=== PATIENT | male | born 1955 | race Caucasian/White ===

== ENCOUNTER 2021-07-18 06:11 | Day surgery (SDC) | payer MEDICARE, OTHER ==
--- NOTE | 2021-07-12 14:58 | HP ---
DATE OF SURGERY: 07/18/2021 HISTORY OF PRESENT ILLNESS: The patient is a 65-year-old male who presented with complaints of dark stool. The patient had a colonoscopy two years ago that was normal. The patient has history of colon polyps in the past. The patient denies any other GI signs or symptoms at this time. PAST MEDICAL HISTORY: Pancreatitis, calcification disease of the pancreas with multiple ERCP's and three stents placed, sludge and pancreatic stones. Patient sees a research group at the [facility] for his pancreatic issues. The patient had his last flare up of pancreatitis about three years ago. PAST SURGICAL HISTORY: Left knee surgery. Seven ERCP's. Three pancreatic stents. The patient still has his gallbladder and it is okay. ALLERGIES: CEFAZOLIN. TORADOL. MEDICATIONS: Losartan, Paxil, Crestor. FAMILY HISTORY: None reported. SOCIAL HISTORY: None reported. REVIEW OF SYSTEMS: CONSTITUTIONAL: Denies fever or chills. CHEST: Denies shortness of breath. CVS: Denies chest pain. ABDOMEN: Denies abdominal pain, nausea, vomiting, diarrhea, constipation. Reports dark stool. PHYSICAL EXAMINATION: GENERAL: No acute distress. CHEST: Nonlabored. No shortness of breath. CVS: Regular rate and rhythm. ABDOMEN: Soft, nontender. IMPRESSION: Dark stools. PLAN: EGD and colonoscopy with Dr. Chandana Mars. As dictated by Robyn Xavier NP.
[2021-07-18] MEDS ORDERED: Lactated Ringers 1,000 ML IV SCH (07:30)
[2021-07-18] MEDS ORDERED: DIPRIVAN 200 MG/20 ML IV ONE (08:52)
[2021-07-18] MEDS ORDERED: Xylocaine-Mpf 2% 5 Ml Vial ONE (08:54)
[2021-07-18] MEDS ORDERED: Ephedrine Sulfate 50 MG/ML ONE (09:05)
[2021-07-18 10:25] VITALS: BP 143/79; PULSE 72; O2SAT 97
--- NOTE | 2021-07-18 10:35 | OP ---
SURGERY DATE/TIME: 07/18/2021 0850 PREOPERATIVE DIAGNOSIS: Dark stools. POSTOPERATIVE DIAGNOSES: 1) Grade 2/4 gastroesophageal reflux disease. 2) Severe diverticulosis of the sigmoid. 3) Moderate internal hemorrhoids. PROCEDURES: 1) EGD. 2) Colonoscopy to cecum. SURGEON: Chandana Mars M.D. ANESTHESIA: MAC. COMPLICATIONS: None. CONDITION: Stable. INDICATION: The patient had dark stools. DESCRIPTION OF PROCEDURE: Taken to endoscopy. Left lateral decubitus position. Pharyngoesophageal junction normal. MAC anesthesia present, excellent anesthesia level present. Esophagus normal down to gastroesophageal junction. A rim of esophagitis grade 2/4. No hiatal hernia. Fundus, body and antrum normal. Pylorus normal. Duodenal bulb normal. Second portion normal. The scope withdrawn looped upon itself. Scope withdrawn. IMPRESSION: No blood on upper examination. There is grade 2/4 gastroesophageal reflux disease with no hiatal hernia. Anal digital examination satisfactory. Scope introduced. Scope advanced to the cecum. Base of cecum, ileocecal valve and appendiceal orifice normal. Ascending, hepatic, transverse, splenic, descending. Severe sigmoid diverticulosis but no signs of any blood. Rectum and anus. Large prostate, moderate internal hemorrhoids. The patient tolerated the procedure satisfactorily. No blood was seen.
== END 2021-07-18 10:30 | disposition home or self-care (01) ==
LOC: SDC 06:11
PROVIDERS: ATTEND Surgery
DX: K57.90 Diverticulosis of intestine, part unspecified, without perforation or abscess without bleeding (principal); K64.8 Other hemorrhoids; K21.9 Gastro-esophageal reflux disease without esophagitis; K92.1 Melena
CPT/HCPCS: J2704